=== PATIENT | female | born 1985 | race Caucasian/White ===

== ENCOUNTER 2019-03-06 19:45 | Inpatient (IN) | payer MEDICAID ==
[~2019-03-06] VITALS: Ht 170.2 cm; Wt 99.8 kg
[2019-03-06] MEDS ORDERED: DEXT 5%/LR + PITOCIN 20UNITS/L 1,000 ML IV SCH ×2 (19:55→20:47)
[2019-03-06] MEDS ORDERED: MISOPROSTOL 200MCG TABLET ONE (20:00)
[2019-03-06] MEDS ORDERED: BUTORPHANOL TARTRATE 2 MG/ML VIAL IV PRN (20:00)
[2019-03-06] MEDS ORDERED: MISOPROSTOL 100MCG TABLET VG SCH (20:00)
[2019-03-06] MEDS ORDERED: CARBOPROST TROMETHAMINE 250 MCG/ML AMPUL IM PRN (20:00)
[2019-03-06] MEDS ORDERED: METHYLERGONOVINE MALEATE 0.2 MG/ML IM PRN (20:00)
[2019-03-06] MEDS ORDERED: LIDOCAINE HCL 1% 20ML VIAL (Pyxis) INJ ONE (20:20)
[2019-03-06] MEDS ORDERED: LACTATED RINGERS 1,000 ML IV SCH (20:30)
[2019-03-06] MEDS ORDERED: PENICILLIN G POTASSIUM 5 MMU in DEXT 5% WATER 100 ML IV NR (20:30)
[2019-03-06 20:34] LABS: INR 0.9; PARTIAL THROMBOPLASTIN TIME 29.3 sec (23.4-31.0); PROTHROMBIN TIME 9.2 sec (9.6-11.0)
[2019-03-06 20:42] LABS: BASOPHILS % 0.2 % (0.0-2.0); EOSINOPHILS % 0.1 % (0.0-5.0); HEMATOCRIT. 31.6 % (36.0-48.0); MEAN CORPUSCULAR HEMOGLOBIN 31.9 pg (28.0-32.0); MEAN CORPUSCULAR VOLUME 91.7 fL (81.0-99.0); MEAN PLATELET VOLUME 10.2 fl (7.4-10.4); MONOCYTES % 8.2 % (2.0-8.0); NEUTROPHILS % 78.5 % (40.0-76.0); PLATELET 157 x1000/uL (130-400); RED BLOOD CELL COUNT 3.45 mill/uL (4.2-5.4); RED CELL DISTRIBUTION WIDTH 12.3 % (11.6-14.6)
[2019-03-06] MEDS ORDERED: IBUPROFEN 400MG TABLET PO PRN (21:00)
[2019-03-06] MEDS ORDERED: BENZOCAINE/LANOLIN/ALOE VERA SPRAY TOP PRN (21:00)
[2019-03-06] MEDS ORDERED: IBUPROFEN 800MG TABLET PO PRN (21:00)
[2019-03-06] MEDS ORDERED: HEMORRHOIDAL SUPP PR PRN (21:00)
[2019-03-06] MEDS ORDERED: DOCUSATE SODIUM 100MG CAPSULE PO SCH (21:00)
[2019-03-06] MEDS ORDERED: DIPHENHYDRAMINE 25MG CAPSULE PO PRN (21:00)
[2019-03-06] MEDS ORDERED: GLYCERIN/WITCH HAZEL LEAF MEDICATED PAD TOP PRN (21:00)
[2019-03-06] MEDS ORDERED: LANOLIN OINT 7GM TUBE TOP PRN (21:00)
[2019-03-06] MEDS ORDERED: BISACODYL 10MG SUPP PR PRN (21:00)
[2019-03-06] MEDS ORDERED: METHYLERGONOVINE MALEATE 0.2MG TABLET PO SCH (21:00)
[2019-03-06] MEDS ORDERED: ACETAMINOPHEN WITH CODEINE 300/30MG TABLET PO PRN ×2 (21:00)
[2019-03-06 21:20] LABS: HEPATITIS B SURFACE ANTIGEN NEGATIVE
[2019-03-06 22:10] VITALS: BP 107/55
[2019-03-06] MEDS ORDERED: PNV1TABL50 MT (22:17)
[2019-03-06 22:40] VITALS: BP 116/50
[2019-03-06 23:10] VITALS: BP 109/44
[2019-03-07] MEDS ORDERED: PENICILLIN G POTASSIUM 2.5 MMU in DEXTROSE 5% WATER 50 ML IV SCH (01:00)
[2019-03-07 02:53] VITALS: BP 102/52
[2019-03-07 06:04] LABS: BASOPHILS % 0.3 % (0.0-2.0); EOSINOPHILS % 0.2 % (0.0-5.0); HEMOGLOBIN. 9.2 g/dL (12.0-16.0); LYMPHOCYTES % 11.8 % (20.0-50.0); MEAN CORPUSCULAR HEMOGLOBIN 32.4 pg (28.0-32.0); MEAN CORPUSCULAR VOLUME 92.1 fL (81.0-99.0); MEAN PLATELET VOLUME 10.3 fl (7.4-10.4); MONOCYTES % 7.7 % (2.0-8.0); PLATELET 139 x1000/uL (130-400); RED BLOOD CELL COUNT 2.83 mill/uL (4.2-5.4); RED CELL DISTRIBUTION WIDTH 12.5 % (11.6-14.6)
[2019-03-07 07:53] VITALS: BP 114/77
[2019-03-07] MEDS ORDERED: PRENATAL VIT/FE FUMARATE/FA TABLET PO SCH (09:00)
[2019-03-07] MEDS: MAGNESIUM/ALUMINUM HYDROXIDE/SIMETHICONE 30ML UDC PO SCH ×4 (09:04→22:06)
[2019-03-07] MEDS: SIMETHICONE 80MG TABLET CHEW PO SCH ×4 (09:04→22:13)
[2019-03-07] MEDS: FERROUS SULFATE 325MG TABLET PO SCH ×3 (09:05→18:08)
[2019-03-07 16:17] VITALS: BP 105/50
[2019-03-07 22:00] VITALS: BP 114/51
[2019-03-08 06:00] VITALS: BP 112/50
[2019-03-08 09:30] VITALS: BP 107/48
== END 2019-03-08 14:20 | disposition home or self-care (01) | DRG 560 ==
LOC: OBSVTOIN 19:45 → 8 EST LDRP 19:45 → 8EST 21:40
PROVIDERS: ADMIT Obstetrics & Gynecology; ATTEND Obstetrics & Gynecology
PROC: 10E0XZZ Delivery of Products of Conception, External Approach (ICD-10-PCS; principal; 2019-03-06)
PROC: 0KQM0ZZ Repair Perineum Muscle, Open Approach (ICD-10-PCS; 2019-03-06)
DX: O46.8X3 Other antepartum hemorrhage, third trimester (principal); O45.93 Premature separation of placenta, unspecified, third trimester; O60.14X0 Preterm labor third trimester with preterm delivery third trimester, not applicable or unspecified; O23.43 Unspecified infection of urinary tract in pregnancy, third trimester; Z37.0 Single live birth; Z3A.34 34 weeks gestation of pregnancy; O70.1 Second degree perineal laceration during delivery
CPT/HCPCS: 36415; 86592; 86703; 86762; 86850; 86900; 87340; 88307; 99281; G0378; J2540; J2590; J3490; J7060; Q0163